=== PATIENT | female | born 1950 | race Caucasian/White ===

== ENCOUNTER → 2017-01-06 | Outpatient (CLI) | payer OTHER, BC | LOC: CIMAGING 08:17 | DX: Z12.31 Encounter for screening mammogram for malignant neoplasm of breast (principal) | CPT/HCPCS: G0202 ==

== ENCOUNTER → 2017-01-15 | Outpatient (CLI) | payer OTHER, BC | LOC: FIMAGING 08:46 | PROVIDERS: ATTEND Psychiatry & Neurology Neurology | DX: M99.71 Connective tissue and disc stenosis of intervertebral foramina of cervical region (principal); M50.322 Other cervical disc degeneration at C5-C6 level; G35 Multiple sclerosis ==

== ENCOUNTER → 2018-01-07 | Outpatient (CLI) | payer OTHER, BC | LOC: CIMAGING 08:21 | PROVIDERS: ATTEND Internal Medicine | DX: Z12.31 Encounter for screening mammogram for malignant neoplasm of breast (principal) ==

== ENCOUNTER 2018-05-01 08:56 | Emergency (ER) | payer OTHER, BC ==
--- NOTE | 2018-05-01 09:19 | EDPHY ---
H & P Stated Complaint: HEAD INJURY FROM FALL 2 DAYS AGO Time Seen by Provider: 05/01/18 08:59 HPI/ROS: Chief Complaint: Head injury HPI: 68-year-old woman had a mechanical slip and fall 2 nights ago, struck her head on the concrete. She did not have a loss of consciousness. She did have some pain and tenderness and swelling at that site. Yesterday she actually felt well. Had a normal day. Last night developed worsening headache. She was unable to sleep was restless. Did not get to sleep well 2. This morning she has continued headache with general malaise. No nausea or vomiting. No neck pain. No numbness or weakness. She does take a baby aspirin. No other blood thinners. Headache at worst is about a 7/10. She has had some relief with ibuprofen. ROS: 10 systems were reviewed and were negative except those elements noted in the HPI. PMH: MS, hypothyroidism Social History: No smoking, no alcohol, no recreational drug use Family History: non-contributory Physical Exam: Gen: Awake, Alert, No Distress HEENT: Scalp:, small right occipital hematoma with mild abrasion, no bony abnormality Nose: no rhinorrhea Eyes: PERRLA, EOMI Mouth: Moist mucosa Neck: Supple, no JVD Chest: nontender, lungs clear to auscultation Heart: S1, S2 normal, no murmur Abd: Soft, non-tender, no guarding Back: no CVA tenderness, no midline tenderness Ext: no edema, non-tender Skin: no rash Neuro: CN II-XII intact, Sensation grossly intact, Strength 5/5 in bilateral upper and lower extremities - Medical/Surgical History Other PMH: HYPOTHYROID, MS - Social History Smoking Status: Never smoked Constitutional: Initial Vital Signs Temperature (C) 36.5 C 05/01/18 09:06 Heart Rate 70 05/01/18 09:06 Respiratory Rate 18 05/01/18 09:06 Blood Pressure 142/71 H 05/01/18 09:06 O2 Sat (%) 100 05/01/18 09:06 O2 Delivery Mode Room Air Allergies/Adverse Reactions: methimazole Allergy (Verified 05/01/18 09:03) zolpidem [From Ambien] Allergy (Verified 05/01/18 09:03) Home Medications: Medication Instructions Recorded AMPYRA 05/01/18 Harriet Allergy 05/01/18 Flonase Nasal [place] 05/01/18 Gabapentin 05/01/18 Imipramine HCl 05/01/18 Levothyroxine 05/01/18 Lisinopril-Hctz 10-12.5 mg Tab 05/01/18 Modafinil 05/01/18 Pantoprazole Sodium 05/01/18 SIMVASTATIN 05/01/18 Medical Decision Making - Diagnostics Imaging Results: Imaging Impressions Head CT 05/01/18 09:15 Impression: 1. Nondisplaced right parieto-occipital skull fracture. 2. Diffuse cerebral atrophy with periventricular and subcortical low attenuation consistent with chronic microvascular ischemic gliosis. 3. Additional findings as above. Findings discussed with Robel Motley MD 05/01/2018 at 9:54. Imaging: Discussed imaging studies w/ manager call center Radiologist ED Course/Re-evaluation: 60-year-old woman with head injury 2 days ago with worsening headache and malaise. Will obtain CT scan to rule out intracranial injury. Shows no acute intracranial injury however she does have a nondisplaced occipital skull fracture on the right per Dr. Trent. Head injury precautions have been provided the patient. I have discussed with neurosurgery PA. They will see her in follow-up as an outpatient in about 2 weeks. Departure - Departure Disposition: Home, Routine, Self-Care Clinical Impression: Skull fracture, Scalp hematoma Condition: Good Instructions: Skull Fracture (ED), Head Injury (ED) Additional Instructions: You may take acetaminophen, 1000 mg 3 times a day for pain. Follow up with the neurosurgeon in 2 weeks. Follow up with primary care physician in 3-4 days. Return to the emergency department for increasing headache, confusion, nausea or vomiting, or any other concerns. Referrals: Nadeen Pacheco MD [Primary Care Provider] - As per Instructions Usman Lindo MD [Medical Doctor] - As per Instructions
[2018-05-01 11:06] VITALS: BP 127/73
== END 2018-05-01 11:00 | disposition home or self-care (01) ==
LOC: CED 08:56
DX: S02.0XXA Fracture of vault of skull, initial encounter for closed fracture (principal); S00.03XA Contusion of scalp, initial encounter; W01.198A Fall on same level from slipping, tripping and stumbling with subsequent striking against other object, initial encounter
CPT/HCPCS: 70450-PO

== ENCOUNTER → 2019-01-08 | Outpatient (CLI) | payer OTHER, BC | LOC: EMCIMAGING 08:54 | PROVIDERS: ATTEND Internal Medicine | DX: M85.89 Other specified disorders of bone density and structure, multiple sites (principal); Z78.0 Asymptomatic menopausal state; E03.9 Hypothyroidism, unspecified; G35 Multiple sclerosis; M81.0 Age-related osteoporosis without current pathological fracture; Z12.31 Encounter for screening mammogram for malignant neoplasm of breast | CPT/HCPCS: 77067-PN; 77080-PN ==